=== PATIENT | female | born 1980 | race African-American/Black ===

== ENCOUNTER 2016-12-06 10:27 | Day surgery (SDC) | payer OTHER ==
[2016-12-06] MEDS ORDERED: GLYCOPYRROLATE INJ 0.4 MG/2 ML VIAL ONE (11:08)
[2016-12-06] MEDS ORDERED: ONDANSETRON HCL INJ/PF 4 MG/2 ML SDV ONE (11:08)
[2016-12-06] MEDS ORDERED: MIDAZOLAM 2 MG/2 ML INJ ONE (11:09)
[2016-12-06] MEDS ORDERED: NALOXONE HCL INJ/PF 0.4 MG/1 ML SDV ONE (11:09)
[2016-12-06] MEDS ORDERED: EPINEPHRINE INJ 1 MG/10 ML DISP.SYRIN ONE (11:10)
[2016-12-06] MEDS ORDERED: FLUMAZENIL INJ 0.5 MG/5 ML VIAL ONE (11:10)
[2016-12-06] MEDS: MIDAZOLAM 2 MG/2 ML INJ ONE ×2 (11:32→11:36)
[2016-12-06] MEDS: FENTANYL CITRATE INJ/PF 100 MCG/2 ML AMPUL ONE ×2 (11:34→11:38)
--- NOTE | 2016-12-06 11:57 | HISTORY AND PHYSICAL E ---
History and Physical NAME: SUSY EVANS : 1980 AGE: 36Y ADMITTED: 12/06/2016 ROOM: CHIEF COMPLAINT: Choking sensation; atypical chest pain; reflux disease; abdominal pain. The pain radiates to the shoulders and the back. SOCIAL HISTORY: . She does not smokes and drinks rarely. PAST MEDICAL AND SURGICAL HISTORY: Tubal ligation. ALLERGIES: Unremarkable. PHYSICAL EXAMINATION: HEAD, EYES, EARS, NOSE AND THROAT: Negative. RESPIRATORY: Clear to auscultation. No rales, no wheezing. CARDIAC: Normal sinus rhythm. ABDOMEN: Soft. NEUROLOGIC EXAM: Negative. FAMILY HISTORY: The father is alive and well. Mom is alive and well. CONCLUSION: Gastroesophageal reflux. PLAN: 1. Upper scope. 2. Gallbladder ultrasound. 3. Diet instruction, avoid dairy products if possible. 4. Admit 12/06/2016. DICTATING PHYSICIAN: YUNIER HAWTHORNE M.D. 1272M [id number] PHY#: [id number] ID: [id number] JOB#: [id number] ACCT: [id number] cc:[facility] YUNIER HAWTHORNE M.D. >
[2016-12-06 12:52] VITALS: BP 113/75
[2016-12-06 13:31] LABS: ABSOLUTE BASOPHILS # (AUTO) 0.1 10^3/uL (0.0-0.2); ABSOLUTE EOSINOPHILS # (AUTO) 0.1 10^3/uL (0.0-0.6); ABSOLUTE LYMPHOCYTES (AUTO) 2.6 10^3/uL (0.5-4.7); ABSOLUTE MONOCYTES (AUTO) 0.5 10^3/uL (0.1-1.4); ABSOLUTE NEUT (AUTO) 3.5 10^3/uL (1.7-8.2); EOSINOPHILS % (AUTO) 0.9 % (0-6); HEMATOCRIT 34.9 % (36.0-47.0); HEMOGLOBIN 11.9 g/dL (12.0-15.5); HGB HCT DIFFERENCE 0.8; LYMPHOCYTES % (AUTO) 38.3 % (13-45); MEAN CORPUSCULAR HEMOGLOBIN 30.6 pg (27.0-33.4); MEAN CORPUSCULAR HGB CONC 34.2 g/dL (32.0-36.0); MEAN CORPUSCULAR VOLUME 90 fl (80-97); MONOCYTES % (AUTO) 7.4 % (3-13); RED CELL DISTRIBUTION WIDTH 12.8 % (11.5-14.0); SEGMENTED NEUTROPHILS % (AUTO) 52.4 % (42-78); WHITE BLOOD COUNT 6.7 10^3/uL (4.0-10.5)
[2016-12-06 13:41] LABS: ALANINE AMINOTRANSFERASE 22 U/L (9-52); ALBUMIN 4.4 g/dL (3.5-5.0); ALKALINE PHOSPHATASE 55 U/L (38-126); ANION GAP 9 (5-19); ASPARTATE AMINO TRANSFERASE 17 U/L (14-36); BILIRUBIN,DIRECT 0.3 mg/dL (0.0-0.4); BILIRUBIN,TOTAL 0.8 mg/dL (0.2-1.3); BLOOD UREA NITROGEN 13 mg/dL (7-20); CALCIUM 9.3 mg/dL (8.4-10.2); CARBON DIOXIDE 30 mmol/L (22-30); CHLORIDE 105 mmol/L (98-107); CREATININE RESULT 0.81 mg/dL (0.52-1.25); GLUCOSE 80 mg/dL (75-110); IRON 115.2 ug/dL (37-170); POTASSIUM 4.1 mmol/L (3.6-5.0); SODIUM 143.5 mmol/L (137-145); TOTAL PROTEIN 7.5 g/dL (6.3-8.2)
--- NOTE | 2016-12-07 08:48 | DISCHARGE SUMMARY E ---
Discharge Summary NAME: SUSY EVANS : 1980 AGE: 36Y ADMITTED: 12/06/2016 DISCHARGED: 12/06/2016 HOSPITAL COURSE: A 36-year-old female presented with reflux, choking sensation, atypical chest pain. Underwent upper scope. It shows no evidence of ulcers. Mild esophagitis, mild gastritis, mild duodenitis. DISCHARGE PLAN: Awaiting biopsy. Continue present management. Continue PPI. We will repeat lab studies. Awaiting biopsy results. Patient to see us in the office in the next few days. DICTATING PHYSICIAN: YUNIER HAWTHORNE M.D. 1211M 1200 PHY#: [id number] ID: [id number] JOB#: [id number] ACCT: [id number] cc:[facility] YUNIER FLORES M.D. >
--- NOTE | 2016-12-07 08:48 | HISTORY AND PHYSICAL E ---
History and Physical NAME: SUSY EVANS : 1980 AGE: 36Y ADMITTED: 12/06/2016 ROOM: CHIEF COMPLAINT: Patient is a 36-year-old female who presented with dysphagia, atypical chest pain, reflux disease, abdominal pain that radiates to the back. SOCIAL HISTORY: . Does not smoke. Does not drink . PAST SURGICAL HISTORY: Tubal ligation. ALLERGIES: No known allergies. REVIEW OF SYSTEMS: HEENT: Negative. RESPIRATORY: Atypical chest pain. CARDIAC: Negative. ENDOCRINE: Negative. GASTROINTESTINAL: Reflux, choking sensation, abdominal pain radiating to the shoulders. ONCOLOGY/HEMATOLOGY: Anemia. NEUROLOGIC: Negative. FAMILY HISTORY: Father is alive and well. Mom is alive and well. PHYSICAL EXAMINATION: VITAL SIGNS: Blood pressure is 90/60, pulse 70, respirations 18, temp is 98. HEENT: Normal. NECK: Supple. LUNGS: Clear. ABDOMEN: Soft. NEUROLOGIC: Negative. CONCLUSION: Atypical chest pain. PLAN: Upper endoscopy. DICTATING PHYSICIAN: YUNIER HAWTHORNE M.D. 1209M 1209 PHY#: [id number] ID: [id number] JOB#: [id number] ACCT: [id number] cc:[facility] M.[facility]. >
--- NOTE | 2016-12-07 08:49 | OPERATIVE REPORT E ---
Operative Report NAME: SUSY EVANS : 1980 AGE: 36Y DATE OF SURGERY: 12/06/2016 ROOM: PREOPERATIVE DIAGNOSIS: Reflux. POSTOPERATIVE DIAGNOSES: 1. Esophagitis, mild. 2. Gastritis, mild. 3. Duodenitis, mild. PROCEDURES: 1. Esophagoscopy. 2. Gastroscopy. 3. Duodenoscopy. SURGEON: YUNIER HAWTHORNE M.D. TISSUE REMOVED OR ALTERED: Gastric biopsy. ANESTHESIA: Versed 6, fentanyl 100. DESCRIPTION: Baby scope passed under guided vision, no difficulties. Esophagoscopy junction at 40. Mild esophagitis. Gastroscopy: Mild gastritis. No ulcers. Gastric biopsy obtained for H. pylori. Duodenoscopy: Duodenal bulb shows mild duodenitis. Descending duodenum normal. CONCLUSION: 1. Mild duodenitis. 2. Mild esophagitis. 3. Mild gastritis. 4. There was a small nodule in the back of the mouth, nonspecific, benign-looking nodule in the base of the tongue in the oropharynx. PLAN: Hold aspirin, nonsteroidal. Soft diet. Continue PPI. Patient to see us in the office in the next few days. DICTATING PHYSICIAN: YUNIER HAWTHORNE M.D. 1654M 1205 PHY#: [id number] ID: [id number] JOB#: [id number] ACCT: [id number] cc:[facility] YUNIER FLORES M.D. >
== END 2016-12-06 13:15 | disposition home or self-care (01) ==
LOC: END 10:27
PROVIDERS: ATTEND Specialist
PROC: 0DB68ZX Excision of Stomach, Via Natural or Artificial Opening Endoscopic, Diagnostic (ICD-10-PCS; principal; 2016-12-06 11:00)
DX: K21.0 Gastro-esophageal reflux disease with esophagitis (principal); K31.9 Disease of stomach and duodenum, unspecified; B96.81 Helicobacter pylori [H. pylori] as the cause of diseases classified elsewhere; K29.80 Duodenitis without bleeding; K14.8 Other diseases of tongue; D64.9 Anemia, unspecified; Z79.899 Other long term (current) drug therapy
CPT/HCPCS: 43239; 36415; 82607; 82728; 83540; 85025; 80053; 88342 ×2; 88305 ×2; J2250; J3010; J2405; J0171; J2310; J3490